=== PATIENT | male | born 1945 | race Caucasian/White ===

== ENCOUNTER → 2016-12-01 | Outpatient (CLI) | payer OTHER ==
[~2016-12-01] MED LIST: ATEN50TA8 PO; MULT-513 PO; OMEG10007 PO; OMEP40CA PO
--- NOTE | 2016-12-01 16:59 | DIAGNOSTIC IMAGING REPORT ---
LEFT KNEE 1 OR 2 VIEWS ROUTINE CLINICAL HISTORY: KNEE PAIN pain COMPARISON: None. DISCUSSION: Generalized degenerative change of all major joint compartments. Degenerative changes of the articular services throughout. No significant joint effusion. There is no evidence for soft tissue swelling. IMPRESSION: Generalized degenerative change of all major joint compartments. No acute process. Electronically signed by: Brandin Rodrigues M.D. 12/01/2016 4:57 PM Dictated Date/Time: 12/01/2016 4:57 PM
== END | disposition home or self-care (01) ==
LOC: C.RADBC 16:32
PROVIDERS: ATTEND Internal Medicine
DX: M25.562 Pain in left knee (principal)

== ENCOUNTER → 2017-07-04 | Outpatient (CLI) | payer OTHER ==
[2017-07-04 10:53] LABS: BASO % 0.6 %; BASO ABS # 0.04 K/uL (0-0.2); COMPLETE YES; EOS % 4.5 %; HEMATOCRIT 42.5 % (42-52); IG% 0.4 %; LYMPH % 26.1 %; LYMPH ABS # 1.78 K/uL (1.2-3.4); MEAN CORPUSCULAR HEMOGLOBIN 31.5 pg (25-34); MEAN CORPUSCULAR HGB CONC 33.9 g/dl (32-36); MEAN PLATELET VOLUME 9.3 fL (7.4-10.4); MONO % 8.9 %; NEUT % 59.5 %; PLATELET COUNT 251 K/uL (130-400); RED BLOOD COUNT 4.57 M/uL (4.7-6.1); WHITE BLOOD COUNT 6.83 K/uL (4.8-10.8)
[2017-07-04 11:19] LABS: ALT/SGPT 26 U/L (12-78); AST/SGOT 14 U/L (15-37); BLOOD UREA NITROGEN 19 mg/dl (7-18); BUN/CREATININE RATIO 15.7 (10-20); CALCIUM 8.7 mg/dl (8.5-10.1); CARBON DIOXIDE 27 mmol/L (21-32); CHLORIDE 108 mmol/L (98-107); GLUCOSE 101 mg/dl (70-99); POTASSIUM 3.9 mmol/L (3.5-5.1); SODIUM 142 mmol/L (136-145)
[2017-07-04 11:23] LABS: ALKALINE PHOSPHATASE 131 U/L (45-117); CHOLESTEROL 154 mg/dl (0-200); CHOLESTEROL/HDL RATIO 4.5; HDL CHOLESTEROL 34 mg/dl; LDL CHOLESTEROL CALCULATED 87 mg/dl; TRIGLYCERIDES 165 mg/dl (0-150); VERY LOW DENSITY LIPOPROT CALC 33 mg/dl
--- NOTE | 2017-07-12 09:38 | CODING QUERY MEDICAL NECESSITY ---
CQSUPPORTING DIAGNOSIS NEEDED A supporting diagnosis is required for the test/procedure performed on this patient in order for us to be reimbursed by the patient's insurance. Please provide a supporting diagnosis for the following test/procedure listed below next to the test name along with your signature. *If there is no additional diagnosis for this patient that would support the following test/procedure please document that below next to the test/procedure. Test(s)/Procedure(s) that require a supporting diagnosis: DOS 07/04/17 PROSTATE SPECIFIC TEST Provider Signature: Date: Thank you Bibi Doty [employer] Once completed, please kindly fax back to [phone] For questions please call [phone]
== END | disposition home or self-care (01) ==
LOC: C.LABBC 08:22
PROVIDERS: ATTEND Internal Medicine
DX: I10 Essential (primary) hypertension (principal)

== ENCOUNTER → 2017-08-08 | Outpatient (CLI) | payer OTHER | END | disposition home or self-care (01) | LOC: C.LABBC 13:00 | PROVIDERS: ATTEND Internal Medicine | DX: I10 Essential (primary) hypertension (principal); E78.1 Pure hyperglyceridemia ==

== ENCOUNTER → 2017-12-21 | Outpatient (CLI) | payer OTHER ==
[2017-12-21 10:58] LABS: BASO % 0.5 %; BASO ABS # 0.03 K/uL (0-0.2); EOS % 3.9 %; EOS ABS # 0.25 K/uL (0-0.5); HEMATOCRIT 41.6 % (42-52); IG# 0.02 K/uL (0.00-0.02); LYMPH % 24.1 %; LYMPH ABS # 1.56 K/uL (1.2-3.4); MEAN CELL VOLUME 93.3 fL (80-100); MEAN CORPUSCULAR HEMOGLOBIN 31.4 pg (25-34); MEAN CORPUSCULAR HGB CONC 33.7 g/dl (32-36); MEAN PLATELET VOLUME 9.2 fL (7.4-10.4); MONO % 7.6 %; MONO ABS # 0.49 K/uL (0.11-0.59); NEUT % 63.6 %; NEUT ABS # 4.13 K/uL (1.4-6.5); PLATELET COUNT 215 K/uL (130-400); RED CELL DISTRIBUTION WIDTH CV 14.1 % (11.5-14.5); RED CELL DISTRIBUTION WIDTH SD 48.2 fL (36.4-46.3); WHITE BLOOD COUNT 6.48 K/uL (4.8-10.8)
[2017-12-21 16:06] LABS: ALBUMIN 3.9 gm/dl (3.4-5.0); ALT/SGPT 31 U/L (12-78); AST/SGOT 18 U/L (15-37); BLOOD UREA NITROGEN 19 mg/dl (7-18); CALCIUM 8.8 mg/dl (8.5-10.1); CARBON DIOXIDE 27 mmol/L (21-32); CHOLESTEROL 166 mg/dl (0-200); GLUCOSE 96 mg/dl (70-99); POTASSIUM 4.2 mmol/L (3.5-5.1); SODIUM 141 mmol/L (136-145)
[2017-12-21 16:17] LABS: ALKALINE PHOSPHATASE 113 U/L (45-117); LDL CHOLESTEROL CALCULATED 95 mg/dl; TOTAL PROTEIN 7.4 gm/dl (6.4-8.2)
== END | disposition home or self-care (01) ==
LOC: C.LABBC 09:07
PROVIDERS: ATTEND Internal Medicine
DX: Z00.00 Encounter for general adult medical examination without abnormal findings (principal); M19.90 Unspecified osteoarthritis, unspecified site

== ENCOUNTER 2020-01-01 18:12 | Observation (INO) ==
[2020-01-01] MEDS ORDERED: PIPERACILLIN/TAZOBACTAM 4.5 GM/120 ML BAG IV ONE (18:21)
[2020-01-01] MEDS ORDERED: PIPERACILL/TAZOBAC CONSULT ACTIVE PRN (18:21)
[2020-01-01] MEDS ORDERED: SODIUM CHLORIDE 0.9% 1000ML 1,000 ML IV ONE (18:21)
--- NOTE | 2020-01-01 18:35 | Emergency Department Note ---
History of Present Illness General Chief complaint: Abnormal Labs/Diagnostic Testing Stated complaint: ABN CT, TENDER ABDOMEN Time Seen by Provider: 01/01/20 18:16 Source: patient Mode of arrival: ambulatory Limitations: no limitations History of Present Illness Provider complaint: Abdominal pain Location: abdomen Radiation: periumbilical Severity: moderate Pain Consistency: + constant Maximum Pain Intensity: 5 Quality: + dull Relieved By: + none Exacerbated By: + movement Associated symptoms: + nausea/vomiting Treatments prior to arrival: none This is a 74-year-old male who presents to the ED with a chief complaint of abdominal pain. He states that his symptoms started on Monday morning with a fairly severe periumbilical pain that eventually migrated into the right upper quadrant over the past 2 days. He reported some nausea and vomiting the first day. Today he just has exquisite tenderness in the right upper quadrant. He saw his PCP who initiated an outpatient work-up including CT scan and blood work. The patient states that pushing on the area makes his pain worse. He denies having any vomiting or diarrhea today. No chest pains or shortness of breath. His pain is moderate to severe with palpation otherwise it is mild. He has not had an appetite. Home Medications Home Medications Medication Instructions Recorded Confirmed Type hydrocortisone 2.5 % topical cream 1 appln ME DAILY PRN #1 gm 07/11/19 01/01/20 History with perineal applicator multivitamin 1 tab PO DAILY 07/11/19 01/01/20 History omega-3 acid ethyl esters 1 gram 1 cap PO BID cap 07/11/19 01/01/20 History capsule omeprazole 40 mg capsule,delayed 40 mg PO DAILY #90 cap 07/11/19 01/01/20 History release atenolol 50 mg PO QPM 01/01/20 01/01/20 History Allergies Allergy/AdvReac Type Severity Reaction Status Date / Time pseudoephedrine Allergy Unknown RASH Verified 01/01/20 19:16 triprolidine Allergy Unknown RASH Verified 01/01/20 19:16 Past Med/Surg History Medical History 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 (Acute) Essential hypertriglyceridemia (Acute) Gastroesophageal reflux disease (Acute) HTN (hypertension) (Acute) Nephrolithiasis Schatzki's ring of distal esophagus (Acute) Tubular adenoma of colon (Acute) Surgical History Hx of appendectomy Hx of tonsillectomy Family History Other Hypertension Prostate cancer Skin cancer Social History Preferred Language: Telugu Communication Ability: Effective Visual Impairment: No Limitations Hearing Ability: Use of Hearing Aid Roster Clerk Required: No marital status: Current Living Situation: Spouse Current Living Situation Comment: 1 cat current occupational status: retired Feels Safe at Home: Yes Smoking Status: Never smoker Hx Alcohol Use: No Hx Substance Use: No Childhood Exposure to Second-Hand Smoke: Yes Dental Care, Regularly: Yes Physical Activity Frequency: Daily Seatbelt Use: always Sunscreen Use: No Review of Systems A total of 10 systems reviewed and were otherwise negative Physical Exam Vital Signs Vital Signs - 24 hr 01/01/20 18:13 01/01/20 18:37 01/01/20 19:16 Temperature 37.9 C H Temperature Source Oral Pulse Rate 88 87 Pulse Rate [Right Finger] 82 Respiratory Rate 18 24 20 Respiratory Depth Normal Blood Pressure 116/73 122/78 Blood Pressure [Left Arm] 137/73 Blood Pressure Mean 87 Blood Pressure Mean [Left Arm] 94 Blood Pressure Position Sitting Pulse Oximetry 95 95 99 Oxygen Delivery Method Room Air Room Air Sepsis Recent Fever Within 48 Hours No Sepsis Action Taken by Nursing No Action Required CONSTITUTIONAL/VITAL SIGNS: Reviewed / noted above. GENERAL: Non-toxic in appearance. INTEGUMENTARY: Warm, dry, and Happy. HEAD: Normocephalic. EYES: without scleral icterus or trauma. ENT/OROPHARYNX: clear and moist. LYMPHADENOPATHY/NECK: Is supple without lymphadenopathy or meningismus. RESPIRATORY: Lungs clear and equal. CARDIOVASCULAR: Regular rate and rhythm. GI/ABDOMEN: Soft and tender in the right upper quadrant. No organomegaly or pulsatile mass. No rebound or guarding. Normal bowel sounds. EXTREMITIES: Warm and well perfused. BACK: No CVA tenderness. NEUROLOGICAL: Intact without focal deficits. PSYCHIATRIC: normal affect. MUSCULOSKELETAL: Normally developed with good muscle tone. TRIAGE NURSING DOCUMENTATION REVIEWED. Course Course 1826 IV Zosyn 4.5 g ordered as well as normal saline 1 L IV. [address] French about the patient. He will see the patient in the ED. Administered Medications Discontinued Medications Piperacillin Sod/Tazobactam Sod (Zosyn) 4.5 gm in 120 mls @ 240 mls/hr IV NOW ONE Stop: 01/01/20 18:50 Last Infusion: 01/01/20 19:07 Dose: 0 mls/hr Documented by: [id number] Admin: 01/01/20 18:38 Dose: 240 mls/hr Documented by: [id number] Sodium Chloride (Nss 1000ml) 1,000 mls @ 999 mls/hr IV .Q1H1M ONE Stop: 01/01/20 19:21 Last Admin: 01/01/20 18:38 Dose: 999 mls/hr Documented by: [id number] Medical Decision Making Differential Diagnosis Differential considered: pancreatitis, hepatitis, acute cholecystitis, AAA, UTI , pyelonephritis, kidney stones, appendicitis, diverticulitis, shingles, bowel obstruction, mesenteric ischemia, intussusception,hernia, testicular torsion, ovarian torsion, ruptured ovarian cyst,ectopic , . Medical Records Attestation: I reviewed the patient's medical records. Home Medications Current Medication List: was personally reviewed by me Laboratory Data Attestation: I reviewed the patient's lab results. The patient's white blood cell count is 13. Hemoglobin is 13. Complete metabolic panel was unremarkable. The BUN is 21. Bilirubin is 1.3. Lipase was normal. Imaging Data Radiologist's Impression: CT scan of the abdomen and pelvis IMPRESSION: 1. Distended and thick-walled gallbladder with surrounding inflammatory change. There is gas either within the lumen or wall the gallbladder. Therefore, this is consistent with a gangrenous/emphysematous acute cholecystitis. 2. Mild thickening of the adjacent duodenum and hepatic flexure of the colon is likely reactive to the acute cholecystitis. 3. Hepatic steatosis. 4. Left-sided nephrolithiasis. No hydronephrosis. 5. Additional findings as described above. 6. These findings were discussed with Dr. Rodriguez at 4:23 PM on 01/01/2020. XR chest 1V portable HISTORY: 74 years-old Male surgery--gangrenous gb preoperative exam. Acute right upper quadrant abdominal pain COMPARISON: CT abdomen and pelvis of same day, chest radiograph 12/04/2019 TECHNIQUE: Portable AP view of the chest FINDINGS: Cardiac silhouette is mildly enlarged. Right hemidiaphragmatic elevation with right lung base densities suggestive of probable atelectasis. No pneumothorax, large pleural effusion and or overt pulmonary edema. Degenerative changes of the shoulders and spine. IMPRESSION: 1. Cardiomegaly without acute process. 2. Right hemidiaphragm elevation with right lung base opacities suggestive of atelectasis. ECG Data Attestation: I personally reviewed and interpreted this ECG as follows: Indication: + abdominal pain Rate (beats per minute): 80 Rhythm: + normal sinus ECG Intervals/blocks: no Normal QT-c ECG ST segments: no ST elevation ECG Findings: no PVCs Blood Pressure Blood Pressure Findings: Normal blood pressure MDM Narrative The patient presents with an outpatient work-up including a CT scan and blood work that suggested a gangrenous gallbladder. His symptoms started a couple of days ago with some periumbilical pain that is now localized in the right upper quadrant. His temperature today is 37.9. He is not tachycardic and his blood pressure is normal. The patient's laboratory studies have been reviewed here. His CAT scan has been reviewed as well. EKG is here shows a normal sinus rhythm. Chest x-ray did not show acute process. I spoke with Dr. French about the patient. The patient was started on IV Zosyn as well as given a bolus of normal saline IV. He will need admitted for surgery. Impression & Plan Acute gangrenous cholecystitis Discharge Plan Visit Data Chief Complaint: Abnormal Labs/Diagnostic Testing Stated Complaint: ABN CT, TENDER ABDOMEN ED Provider: Lucian Rabago Discharge Problem: Acute gangrenous cholecystitis Patient Disposition: Being Evaluated by Surgeon Discharge Instructions Interventions: ED Discharge Assessment Last Done: 01/01/20 19:16 Forms Stand Alone Forms: My [facility] [place] [employer] Prescriptions Prescriptions: No Action omega-3 acid ethyl esters 1 gram capsule 1 cap PO BID RF: 0 multivitamin [Daily Multi-Vitamin] tablet 1 tab PO DAILY RF: 0 omeprazole 40 mg capsule,delayed release(DR/EC) 40 mg PO DAILY Qty: 90 RF: 0 hydrocortisone 2.5 % cream with perineal applicator 1 appln ME DAILY PRN (Reason: Itching) Qty: 1 RF: 0 atenolol 50 mg tablet 50 mg PO QPM RF: 0 Referrals Referrals: Darrin Rodriguez MD [Primary Care Provider] -
--- NOTE | 2020-01-01 19:00 | XRay Report ---
XR chest 1V portable HISTORY: 74 years-old Male surgery--gangrenous gb preoperative exam. Acute right upper quadrant abdo nena pain COMPARISON: CT abdomen and pelvis of same day, chest radiograph 12/04/2019 TECHNIQUE: Portable AP view of the chest FINDINGS: Cardiac silhouette is mildly enlarged. Right hemidiaphragmatic elevation with right lung base densiti es suggestive of probable atelectasis. No pneumothorax, large pleural effusion and or overt pulmonary edema. Degenerative changes of the shoulders and spine. IMPRESSION: 1. Cardiomegaly without acute process. 2. Right hemidiaphragm elevation with right lung base opacities suggestive of atelectasis. ACT 112: Negative or not required by law. The above report was generated using voice recognition software. It may contain grammatical, syntax o r spelling errors. Electronically signed by: Cy Huerta M.D. 01/01/2020 6:58 PM
[2020-01-01] MEDS ORDERED: BUPIVACAINE 0.5 % 5 MG/1 ML MPF 30ML VIAL ONE (19:07)
[2020-01-01] MEDS ORDERED: CEFAZOLIN 250 MG/ML 1 GM VIAL ONE (19:07)
[2020-01-01] MEDS ORDERED: HEPARIN (PORCINE) 1000 UNIT/ML 10 ML (CATH LAB USE ONLY) ONE (19:07)
[2020-01-01] MEDS ORDERED: ATROPINE SULFATE 0.1 MG/ML 10ML SYR IV PRN (19:28)
[2020-01-01] MEDS ORDERED: ONDANSETRON INJ 2 MG/ML 2 ML VIAL IV PRN ×2 (19:28→23:18)
[2020-01-01] MEDS ORDERED: fentaNYL citrate 100 MCG/2 ML VIAL IV PRN (19:28)
[2020-01-01] MEDS ORDERED: ePHEDrine sulfate 50 MG/ML AMP IV PRN (19:28)
--- NOTE | 2020-01-01 19:28 | Anesthesiology Consultation ---
Date of Service January 01, 2020 Assessment & Plan Chart Review Chart Review: Acceptable Risk for Surgery and Patient NOT seen in Pre Admission Testing Consults Requested none ASA [id number] Proposed Anesthesia Anesthesia Type: General Risk / Benefits Reviewed With: PT / POA / Parent / Guardian, Accepts Plan and Informed Consent Obtained History Surgery Operation Date: 01/01/20 19:00 Proposed Procedures p Laparoscopic Cholecystectomy - Brandin French MD Height/Weight Height: 5 ft 9 in Weight: 86.1 kg Allergies Allergy/AdvReac Type Severity Reaction Status Date / Time pseudoephedrine Allergy Unknown RASH Verified 01/01/20 19:16 triprolidine Allergy Unknown RASH Verified 01/01/20 19:16 Medications Home Medications Medication Instructions Recorded Confirmed Last Taken hydrocortisone 2.5 % topical cream 1 appln ME DAILY PRN #1 gm 07/11/19 01/01/20 Unknown with perineal applicator multivitamin 1 tab PO DAILY 07/11/19 01/01/20 01/01/20 omega-3 acid ethyl esters 1 gram 1 cap PO BID cap 07/11/19 01/01/20 01/01/20 capsule omeprazole 40 mg capsule,delayed 40 mg PO DAILY #90 cap 07/11/19 01/01/20 01/01/20 release atenolol 50 mg PO QPM 01/01/20 01/01/20 12/31/19 NPO Date Last Intake of Fluids: 01/01/20 Time Last Intake of Fluids: 12:00 Past Medical History Medical History 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 (Acute) Essential hypertriglyceridemia (Acute) Gastroesophageal reflux disease (Acute) HTN (hypertension) (Acute) Nephrolithiasis Schatzki's ring of distal esophagus (Acute) Tubular adenoma of colon (Acute) Exercise / Class Metabolic Activity II 4-5 Yardwork/Stairs/Walk up hill Past Family History Family History Other Hypertension Prostate cancer Skin cancer Past Surgical History Surgical History Hx of appendectomy Hx of tonsillectomy Past Anesthesia History No Hx of Anesthesia Complications and No Family Hx of Anesthesia Complications History of PONV No Hx of PONV and No Hx of Motion Sickness Social History Smoking Status: Never smoker Hx Alcohol Use: No Hx Substance Use: No Physical Exam Vital Signs Last Vital Signs Temp 37.9 C H 01/01/20 18:13 Pulse 87 01/01/20 19:16 Resp 20 01/01/20 19:16 BP 122/78 01/01/20 19:16 Pulse Ox 99 01/01/20 19:16 ENMT Mouth: no dentition abnormality Thyromental Distance: > or= 3.5 Finger Breadths Mallampati Class: II Neck normal visual inspection Respiratory normal respiratory effort Auscultation: lungs clear to auscultation bilaterally Cardiovascular Rate/Rhythm: regular rate and regular rhythm Psychiatric Orientation: alert
--- NOTE | 2020-01-01 19:30 | History & Physical Report ---
Date of Service January 01, 2020 Assessment & Plan (1) Acute gangrenous cholecystitis: This patient has acute cholecystitis with evidence of possible gangrenous cholecystitis. I recommended a laparoscopic cholecystectomy but explained that there is an increased chance that it will require an open procedure and he understands that. I explained to him the procedures. I explained the possible complications and answered his questions and he has signed a consent form. History of Present Illness Chief Complaint: Abdominal pain Primary Care Provider: Darrin Rodriguez MD This is a 74-year-old male who was sent to the emergency room after a CT scan demonstrated gangrenous gallbladder. The patient states that he began to have pain 2 days ago. It was on the right side from the level of the umbilicus up to the subcostal region. The pain then became very sharp. It has persisted. He has never had pain like this before. Motion exacerbates the discomfort. He has had no fever or chills. He denies nausea and vomiting. His bowels have been moving without melena or hematochezia. He has no diarrhea or constipation. He has never had jaundice, hepatitis or pancreatitis. Allergies Allergy/AdvReac Type Severity Reaction Status Date / Time pseudoephedrine Allergy Unknown RASH Verified 01/01/20 19:16 triprolidine Allergy Unknown RASH Verified 01/01/20 19:16 Home Medications Home Medications Medication Instructions Recorded Confirmed Type hydrocortisone 2.5 % topical cream 1 appln ID DAILY PRN #1 gm 07/11/19 01/01/20 History with perineal applicator multivitamin 1 tab PO DAILY 07/11/19 01/01/20 History omega-3 acid ethyl esters 1 gram 1 cap PO BID cap 07/11/19 01/01/20 History capsule omeprazole 40 mg capsule,delayed 40 mg PO DAILY #90 cap 07/11/19 01/01/20 History release atenolol 50 mg PO QPM 01/01/20 01/01/20 History Past Med/Surg History Medical History 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 (Acute) Essential hypertriglyceridemia (Acute) Gastroesophageal reflux disease (Acute) HTN (hypertension) (Acute) Nephrolithiasis Schatzki's ring of distal esophagus (Acute) Tubular adenoma of colon (Acute) Surgical History Hx of appendectomy Hx of tonsillectomy Family History Other Hypertension Prostate cancer Skin cancer Social History Preferred Language: Estonian Communication Ability: Effective Visual Impairment: No Limitations Hearing Ability: Use of Hearing Aid Bee Tender Required: No marital status: Current Living Situation: Spouse Current Living Situation Comment: 1 cat current occupational status: retired Feels Safe at Home: Yes Smoking Status: Never smoker Hx Alcohol Use: No Hx Substance Use: No Childhood Exposure to Second-Hand Smoke: Yes Dental Care, Regularly: Yes Physical Activity Frequency: Daily Seatbelt Use: always Sunscreen Use: No Review of Systems Review of Systems: All systems reviewed & are unremarkable except as noted in HPI & below Physical Exam Constitutional: well developed; no acute distress Neck: trachea midline Respiratory: normal respiratory effort, lungs clear to auscultation Cardiovascular: Rate/Rhythm: regular rate and regular rhythm Gastrointestinal (Abdomen): Inspection/Auscultation: normal bowel sounds; abdomen not distended Percussion/Palpation: + abdomen tender (Right subcostal region) and abdomen soft; no guarding Skin: no rashes, warm and dry Lymphatic: no cervical lymphadenopathy Results & Data Vital Signs (Past 12 Hours) Vital Signs Temp Pulse Pulse Resp BP BP Pulse Ox 01/01/20 19:16 87 20 122/78 99 01/01/20 18:37 82 24 137/73 95 01/01/20 18:13 37.9 C H 88 18 116/73 95 Laboratory Results WBC 13.04 H&H 13.3 and 40.4 platelets 203,000 sodium 136 potassium 3.9 chloride 105 CO2 26 BUN 21 creatinine 1.3 glucose 123 total bilirubin 1.3 AST 17 ALT 22 alkaline phosphatase 122 lipase 72 Diagnostic Findings ABDOMEN AND PELVIS CT WITHOUT CONTRAST CT DOSE: 902.74 mGycm HISTORY: R10.31 Right lower quadrant pain TECHNIQUE: Multiaxial CT images of the abdomen and pelvis were performed without contrast. A dose lowering technique was utilized adhering to the principles of ALARA. COMPARISON STUDY: None. FINDINGS: Punctate calcified granuloma seen within the lung bases. Bibasilar linear densities consistent with subsegmental atelectasis. No suspicious lytic are blastic osseous lesions. Hepatic steatosis. The unenhanced spleen, adrenal glands, and pancreas are unremarkable. Left-sided nephrolithiasis. No ureteral stones. No hydronephrosis. The bladder is unremarkable. A 2 cm hypodense lesion within the upper pole the right kidney. This is technically too small to characterize but favors a cyst. No retroperitoneal lymphadenopathy. Small fat-containing umbilical hernia. Distended and thick-walled gallbladder with surrounding inflammatory change. There is gas either within the lumen or wall the gallbladder. Therefore, this is consistent with a gangrenous/emphysematous acute cholecystitis. There are few punctate gallstones within the gallbladder fundus. Mild thickening of the adjacent duodenum and hepatic flexure of the colon is likely reactive to the acute cholecystitis. Small fat-containing left inguinal hernia. Colonic diverticulosis. No evidence for acute diverticulitis. No evidence for bowel obstruction. Distal ileal diverticula are also noted. The appendix is not identified and reportedly surgically absent. IMPRESSION: 1. Distended and thick-walled gallbladder with surrounding inflammatory change. There is gas either within the lumen or wall the gallbladder. Therefore, this is consistent with a gangrenous/emphysematous acute cholecystitis. 2. Mild thickening of the adjacent duodenum and hepatic flexure of the colon is likely reactive to the acute cholecystitis. 3. Hepatic steatosis. 4. Left-sided nephrolithiasis. No hydronephrosis. 5. Additional findings as described above. 6. These findings were discussed with Dr. Rodriguez at 4:23 PM on 01/01/2020.
[2020-01-01] MEDS ORDERED: fentaNYL citrate 100 MCG/2 ML VIAL ONE (19:50)
[2020-01-01] MEDS ORDERED: DEXAMETHASONE SOD INJ 4 MG/ML VIAL ONE (20:28)
[2020-01-01] MEDS ORDERED: ONDANSETRON INJ 2 MG/ML 2 ML VIAL ONE (20:28)
[2020-01-01] MEDS ORDERED: ROCURONIUM BROMIDE 10 MG/ML 5 ML VIAL ONE (20:28)
[2020-01-01] MEDS ORDERED: GLYCOPYRROLATE 0.2 MG/ML VIAL ONE (20:28)
[2020-01-01] MEDS ORDERED: NEOSTIGMINE METHYLSULFATE 5 MG/5 ML SYR ONE (20:28)
[2020-01-01] MEDS ORDERED: SUCCINYLCHOLINE CHLORIDE 20 MG/ML 10 ML VIAL ONE (20:28)
[2020-01-01] MEDS ORDERED: LIDOCAINE HCL 2% 2 ML VIAL/AMP(20MG/ML) INFIL ONE (20:28)
[2020-01-01] MEDS ORDERED: PROPOFOL IV EMULSION 10 MG/ML 20 ML VIAL IV ONE (20:28)
[2020-01-01] MEDS ORDERED: MoRPHine SULFATE PF 1 MG/ML 10 ML AMP/VIAL ONE (20:29)
[2020-01-01] MEDS ORDERED: FLOSEAL HEMOSTATIC MATRIX 10ML TOP ONE (21:40)
--- NOTE | 2020-01-01 22:07 | Post Operative Brief Note ---
Immediate Post Op Note v1 Date of Surgery January 01, 2020 Pre & Post Diagnosis Operation Date: 01/01/20 19:00 Pre-Op Diagnosis: Acute Cholecystitis Post-Op Diagnosis: Acute Gangrenous Cholecystitis I identified the patient and participated in the time-out.: Yes Procedure Operation Date: 01/01/20 19:00 Actual Procedures p Laparoscopic Cholecystectomy(Not Applicable) - Brandin French MD Surgeon Brandin French MD Puff Ironer None Estimated Blood Loss 50 Findings Consistent with Post-Op Diagnosis Drains Yaya-Mendez Drain (10fr flat drain right lateral abdomen) Anesthesia Type General Complications none
--- NOTE | 2020-01-01 22:36 | Anesthesiology Progress Note ---
Date of Service January 01, 2020 Anesthesia Post Procedure Vital Signs Vital Signs: Temp Pulse Pulse Pulse Resp BP BP 01/01/20 22:35 78 18 107/56 L 01/01/20 22:25 78 18 104/58 L 01/01/20 22:17 36.6 C 81 18 134/63 01/01/20 19:16 87 20 122/78 01/01/20 18:37 82 24 137/73 01/01/20 18:13 37.9 C H 88 18 116/73 Pulse Ox 01/01/20 22:35 93 01/01/20 22:25 93 01/01/20 22:17 93 01/01/20 19:16 99 01/01/20 18:37 95 01/01/20 18:13 95 Transfer of Care Handoff Completed per policy Notes Mental Status: alert / awake / arousable Patient Amnestic to Procedure: Yes Nausea / Vomiting: adequately controlled Pain: adequately controlled Airway Patency, RR, SpO2: stable & adequate BP & HR: stable & adequate Hydration State: stable & adequate Anesthetic Complications: no major complications apparent
[2020-01-01] MEDS ORDERED: OXYCODONE/ACETAMINOPHEN 5mg/325mg TAB PO PRN (23:18)
[2020-01-01] MEDS ORDERED: MoRPHine SULFATE 4 MG/ML 1 ML CARP\\VIAL IV PRN (23:18)
[2020-01-01] MEDS: SODIUM CHLORIDE 0.9% 1000ML 1,000 ML IV SCH (23:41)
--- NOTE | 2020-01-02 01:25 | Operative Report (OR) ---
DATE OF OPERATION: 01/01/2020 PREOPERATIVE DIAGNOSIS: Acute cholecystitis. POSTOPERATIVE DIAGNOSIS: Acute gangrenous cholecystitis. SURGEON: Brandin French MD FINDINGS: The gallbladder was dilated and the wall was thick. There were multiple patches of gangrenous gallbladder wall. There was purulent bile within the lumen. Cystic duct was not dilated. The liver was of normal size and contour. The visible bowel appeared normal. There were thickened adhesions of the omentum to the fundus of the gallbladder and also to the anterior surface of the liver. TECHNIQUE: The patient was given a general anesthetic and the area was prepped and draped in the usual sterile fashion. The site for the subumbilical incision was made and the skin and subcutaneous tissue were anesthetized with 0.5% Marcaine. Skin incision was made and carried down through the subcutaneous tissue to the fascia which was grasped with 2 Miguelangel clamps and incised between. The peritoneum was identified, incised, and the introducer was placed bluntly. The abdomen was then insufflated to a pressure of 15 mmHg with carbon dioxide. The sites for the upper midline, midclavicular, and anterior axillary introducers were chosen and the skin and subcutaneous tissue was anesthetized with 0.5% Marcaine. Each of those introducers were placed through a small skin incision under direct vision. The patient was positioned. I initially could not visualize the gallbladder due to the omental adhesions. I did take those down using cautery and blunt dissection where appropriate. That then allowed me to see the gallbladder wall. Once I had the adhesions off the fundus of the gallbladder, the remainder of it was free of adhesion. I then attempted to grasp the gallbladder, but was unable to. The drainage needle was passed under direct vision into the gallbladder and it was drained. The gallbladder could then be grasped and elevated. I then grasped the infundibulum area and elevated that. The peritoneum was quite thickened. I was able to open that and dissect off the infundibulum down to where I was sure I was underneath the infundibulum at the neck of the gallbladder and peel that tissue away, first laterally and then medially which then allowed me to identify the cystic duct. The infundibulum and lower portion of the body of the gallbladder were dissected away from the liver laterally. I then was able to place more inferior traction and open the triangle of Calot and dissect the infundibulum and lower body away medially which allowed me then to see the medial wall of the cystic duct and establish a plane on the medial side where there were some lymphatics that were divided using cautery, which allowed me then to establish a plane behind it. Further dissection was carried out with placing lateral traction on the gallbladder and the cystic duct. That allowed me then to identify the cystic artery. That allowed me to have an adequate window and I placed 2 clips on the proximal cystic duct, one near the junction with the gallbladder and divided the cystic duct. Further dissection of the cystic artery was then performed. It was isolated, clamped, and divided. Behind that was a large lymphatic which was clamped proximally, distally and divided. That then allowed me to peel the gallbladder off the liver bed. There was not a good plane of dissection and it required in some areas very meticulous millimeter by millimeter dissection. I did not want to leave any of the back wall of the gallbladder and I was able to remove the entire gallbladder. The dissection was carried from inferior to superior and then from lateral to medial until it was completely removed. It was placed into an Endobag and brought out through the upper midline incision where I had to open the incision further in order to extract it but that was accomplished. That introducer was replaced and the liver edge was elevated. There was clot within the gallbladder bed of the liver that was removed. There was clot in the subhepatic space that was removed. There were multiple areas of oozing that required cautery. This required meticulous hemostatic attention using cautery. I would irrigate, cauterize, and then irrigate again until I was sure that all of the areas had been controlled. The subdiaphragmatic and subhepatic spaces were then irrigated. The irrigation was removed. Any clot that was encountered was removed. The gallbladder bed of the liver was again inspected and then was bleeding. Due to the oozing, I placed FloSeal in the gallbladder bed of the liver. I then placed a 10 mm Yaya-Mendez in the subhepatic space and brought it out through the anterior axillary introducer site and secured that with a 3-0 nylon. Gas was allowed to escape and the introducers were removed. The fascia of the umbilical and upper midline introducer sites was closed with interrupted 0 Vicryl and the skin of all the incisions was closed with 4-0 Monocryl in either an interrupted or running subcuticular fashion. The skin was cleansed, dried, benzoin placed, Steri-Strips applied. Estimated blood loss was 50 mL. Sponge, needle and instrument counts were correct prior to closure. The patient tolerated the surgical procedure without complication and was transferred to recovery. I attest to the content of the Intraoperative Record and any orders documented therein. Any exception s are noted below.
[2020-01-02 05:51] LABS: Basophils # (auto) 0.01 K/uL (0-0.2); Basophils % (auto) 0.1 %; Hematocrit (blood only) 33.6 % (42-52); Immature Granulocytes # (auto) 0.02 K/uL (0.00-0.02); Immature Granulocytes % (auto) 0.2 %; Lymphocytes # (auto) 0.53 K/uL (1.2-3.4); Mean Corpuscular Hemoglobin 30.7 pg (25-34); Mean Corpuscular Hgb Conc 32.7 g/dL (32-36); Mean Corpuscular Volume 93.9 fL (80-100); Mean Platelet Volume 9.5 fL (7.4-10.4); Monocytes # (auto) 0.61 K/uL (0.11-0.59); Monocytes % (auto) 6.9 %; Neutrophils # (auto) 7.64 K/uL (1.4-6.5); Neutrophils % (auto) 86.8 %; Platelet Count 145 K/uL (130-400); RDW Coefficient of Variation 14.6 % (11.5-14.5); RDW Standard Deviation 50.3 fL (36.4-46.3); Red Blood Count 3.58 M/uL (4.7-6.1); White Blood Count 8.81 K/uL (4.8-10.8)
[2020-01-02] MEDS ORDERED: ACETAMINOPHEN 325 MG TAB PO PRN (07:07)
--- NOTE | 2020-01-02 07:28 | Anesthesiology Progress Note ---
Date of Service January 02, 2020 Anesthesia Post Procedure Vital Signs Vital Signs: Temp Pulse Pulse Pulse Resp BP BP 01/02/20 06:01 01/02/20 05:50 01/02/20 03:09 36.5 C 71 16 109/63 01/02/20 02:07 67 18 110/69 01/02/20 01:05 69 16 114/69 01/02/20 00:05 74 18 114/65 01/01/20 23:35 36.8 C 87 18 121/72 01/01/20 23:05 36.9 C 90 18 116/63 01/01/20 22:45 82 18 113/60 01/01/20 22:35 78 18 107/56 L 01/01/20 22:25 78 18 104/58 L 01/01/20 22:17 36.6 C 81 18 134/63 01/01/20 19:16 87 20 122/78 01/01/20 18:37 82 24 137/73 01/01/20 18:13 37.9 C H 88 18 116/73 Pulse Ox 01/02/20 06:01 94 01/02/20 05:50 94 01/02/20 03:09 96 01/02/20 02:07 97 01/02/20 01:05 97 01/02/20 00:05 95 01/01/20 23:35 94 01/01/20 23:05 92 01/01/20 22:45 93 01/01/20 22:35 93 01/01/20 22:25 93 01/01/20 22:17 93 01/01/20 19:16 99 01/01/20 18:37 95 01/01/20 18:13 95 Notes Mental Status: alert / awake / arousable and participated in evaluation Patient Amnestic to Procedure: Yes Nausea / Vomiting: adequately controlled Pain: adequately controlled Airway Patency, RR, SpO2: stable & adequate BP & HR: stable & adequate Hydration State: stable & adequate Anesthetic Complications: no major complications apparent and Pt Satisfied with anesthetic care
[2020-01-02] MEDS: PANTOprazole 40 MG TAB PO SCH (09:05)
--- NOTE | 2020-01-02 09:28 | Family Medicine Consultation ---
Date of Consultation January 02, 2020 Assessment & Plan (1) Acute gangrenous cholecystitis: Mr. Allen is a 74 gentleman on POD 1 after laparoscopic cholecystitis for acute gangrenous cholecystitis. Surgery consulted hospitalist team for blood pressure management in post-operative setting. (2) HTN (hypertension): - BP currently 116/76 - systolic has ranged from 104 to 134 - diastolic has ranged from 56 to 78 - pulse 66 to 90 - continue home dose Atenolol 60mg, qAM (3) Gastroesophageal reflux disease: - continue home protonix Dispo: Med/Surg DVT prophylaxis deferred to surgical team Diet: Regular Code: Conditional - Okay with Resuscitation, DNI Hospitalist team will sign off on care at this point. Please feel free to re- consult us if further questions arise Supervising Physician Co-Signing Physician Notes I personally examined the patient and verified all neves points of history and exam, discussed case, and agree with decision making with Dr Hui. feeling good overall. no new complaints. notes BP easy to control at home. vitals noted nad heent nc at mmm breathing unlabored no pallor or icterus HTN - well controlled no sx. continue home meds will be available if needed, but will sign off for now. thank you. History of Present Illness Reason for Consultation: Anti-hypertensive Management Attending Physician: Brandin French MD History of Present Illness Mr. Allen is a 74 yo gentleman who is POD 1 after laparoscopic cholecystectomy for acute gangrenous cholecystitis. Hospitalist team consulted for anti- hypertensive management. Mr. Allen is on Atenolol 50mg qAM at home for his blood pressure. He reports good control with this home medication. He reports feeling well, no new compliants. Allergies Allergy/AdvReac Type Severity Reaction Status Date / Time pseudoephedrine Allergy Unknown RASH Verified 01/01/20 19:16 triprolidine Allergy Unknown RASH Verified 01/01/20 19:16 Home Medications Home Medications Medication Instructions Recorded Confirmed Type hydrocortisone 2.5 % topical cream 1 appln DE DAILY PRN #1 gm 07/11/19 01/01/20 History with perineal applicator multivitamin 1 tab PO DAILY 07/11/19 01/01/20 History omega-3 acid ethyl esters 1 gram 1 cap PO BID cap 07/11/19 01/01/20 History capsule omeprazole 40 mg capsule,delayed 40 mg PO DAILY #90 cap 07/11/19 01/01/20 History release atenolol 50 mg PO QPM 01/01/20 01/01/20 History Patient History Medical History 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 (Acute) Essential hypertriglyceridemia (Acute) Gastroesophageal reflux disease (Acute) HTN (hypertension) (Acute) Nephrolithiasis Schatzki's ring of distal esophagus (Acute) Tubular adenoma of colon (Acute) Surgical History Hx of appendectomy Hx of tonsillectomy Family History Other Hypertension Prostate cancer Skin cancer Social History Preferred Language: Turkish Communication Ability: Effective Visual Impairment: No Limitations Hearing Ability: Use of Hearing Aid Tool Maintenance Technician Required: No Beliefs That Will Affect Care: None marital status: Current Living Situation: Spouse Current Living Situation Comment: 1 cat current occupational status: retired Feels Safe at Home: Yes Smoking Status: Never smoker Do You Dip or Chew Tobacco: No ; Hx Alcohol Use: No Hx Substance Use: No Childhood Exposure to Second-Hand Smoke: Yes Dental Care, Regularly: Yes Physical Activity Frequency: Daily Seatbelt Use: always Sunscreen Use: No Review of Systems Review of Systems: All systems reviewed & are unremarkable except as noted in HPI & below Physical Exam Constitutional: WD/WN, vitals as above Eyes: + anicteric sclerae Neck: normal visual inspection and trachea midline Respiratory: normal respiratory effort Skin: no rashes, warm and dry Psychiatric: A+Ox3, euthymic affect Results & Data Vital Signs (Past 12 Hours) Vital Signs Temp Pulse Pulse Resp BP Pulse Ox 01/02/20 07:50 36.8 C 66 18 116/67 93 01/02/20 06:01 94 01/02/20 05:50 94 01/02/20 03:09 36.5 C 71 16 109/63 96 01/02/20 02:07 67 18 110/69 97 01/02/20 01:05 69 16 114/69 97 01/02/20 00:05 74 18 114/65 95 01/01/20 23:35 36.8 C 87 18 121/72 94 01/01/20 23:05 36.9 C 90 18 116/63 92 01/01/20 22:45 82 18 113/60 93 01/01/20 22:35 78 18 107/56 L 93 01/01/20 22:25 78 18 104/58 L 93 01/01/20 22:17 36.6 C 81 18 134/63 93 Resident Activity Tracking Resident Involvement: Resident Care Provided Care Provided: Adult Hospital Medicine (1) Gastroesophageal reflux disease Esophagitis presence: without esophagitis Qualified Code(s): K21.9 - Gastro- esophageal reflux disease without esophagitis (2) HTN (hypertension) Hypertension type: essential hypertension Qualified Code(s): I10 - Essential (primary) hypertension
--- NOTE | 2020-01-02 09:37 | Electrocardiogram Report ---
Test Reason : Blood Pressure : / mmHG Vent. Rate : 080 BPM Atrial Rate : 080 BPM P-R Int : 168 ms QRS Dur : 082 ms QT Int : 364 ms P-R-T Axes : 040 -04 -39 degrees QTc Int : 419 ms Normal sinus rhythm Nonspecific ST and T wave abnormality Abnormal ECG When compared with ECG of 31-DEC-2001 12:43, Nonspecific T wave abnormality now evident in Lateral leads Confirmed by Kenn Monet ([id number]) on 01/02/2020 9:36:53 AM Referred By: Darrin Rodriguez Confirmed By:Kenn Monet
--- NOTE | 2020-01-02 10:27 | Surgery Progress Note ---
Date of Service January 02, 2020 Assessment & Plan (1) Acute gangrenous cholecystitis: POD # 1 s/p laparoscopic cholecystectomy for gangrenous cholecystitis -vitals stable, afebrile - resolution of leukocytosis - pain minimal - mar drain with 60 cc bloody sanguineous output LS - no n/v Plan: regular diet as tolerated IV mefoxin to start now continue IV fluids encouraged oob to chair and ambulate Continue pain management as needed continue mar drain to bulb suction hopeful discharge tomorrow cbc tomorrow am Dr. French has seen and examined pt, agrees with above Subjective feeling good this morning minimal pain passing gas no nausea or vomiting tolerated breakfast Physical Exam Constitutional: WD/WN, vitals as above no acute distress Respiratory: normal respiratory effort; no respiratory distress Gastrointestinal (Abdomen): Inspection/Auscultation: abdomen normal to inspection and + abdominal surgical drain present (bloody, sanguineous); abdomen not distended Percussion/Palpation: abdomen soft; abdomen nontender, no guarding and abdomen not rigid Skin: no rashes, warm and dry Psychiatric: A+Ox3, euthymic affect Results & Data Vital Signs (Past 12 Hours) Vital Signs Temp Pulse Pulse Resp BP Pulse Ox 01/02/20 07:50 36.8 C 66 18 116/67 93 01/02/20 06:01 94 01/02/20 05:50 94 01/02/20 03:09 36.5 C 71 16 109/63 96 01/02/20 02:07 67 18 110/69 97 01/02/20 01:05 69 16 114/69 97 01/02/20 00:05 74 18 114/65 95 01/01/20 23:35 36.8 C 87 18 121/72 94 01/01/20 23:05 36.9 C 90 18 116/63 92 01/01/20 22:45 82 18 113/60 93 01/01/20 22:35 78 18 107/56 L 93 01/01/20 22:25 78 18 104/58 L 93 Laboratory Results 01/02/20 Range/Units 05:25 WBC 8.81 (4.8-10.8) K/uL RBC 3.58 L (4.7-6.1) M/uL Hgb 11.0 L (14.0-18.0) g/dL Hct 33.6 L (42-52) % MCV 93.9 (80-100) fL MCH 30.7 (25-34) pg MCHC 32.7 (32-36) g/dL RDW Std Deviation 50.3 H (36.4-46.3) fL RDW Coeff of Anatoliy 14.6 H (11.5-14.5) % Plt Count 145 (130-400) K/uL MPV 9.5 (7.4-10.4) fL Immature Gran % (Auto) 0.2 % Neut % (Auto) 86.8 % Lymph % (Auto) 6.0 % [place] % (Auto) 6.9 % Eos % (Auto) 0.0 % Baso % (Auto) 0.1 % Immature Gran # (Auto) 0.02 (0.00-0.02) K/uL Neut # (Auto) 7.64 H (1.4-6.5) K/uL Lymph # (Auto) 0.53 L (1.2-3.4) K/uL [place] # (Auto) 0.61 H (0.11-0.59) K/uL Eos # (Auto) 0.00 (0-0.5) K/uL Baso # (Auto) 0.01 (0-0.2) K/uL
[2020-01-02] MEDS: SODIUM CHLORIDE 0.9% 1000ML 1,000 ML IV SCH (11:37)
[2020-01-02] MEDS: cefOXitin 2,000 MG in DEXTROSE 5% 50 ML IV SCH ×3 (11:46→22:41)
--- NOTE | 2020-01-02 15:04 | Billing Data ---
Date of Service January 02, 2020 Coding Level of Care Code 85740 Inpt Consult Level 2
[2020-01-02] MEDS ORDERED: ATENOLOL 50 MG TABLET PO SCH (21:00)
[2020-01-03] MEDS: cefOXitin 2,000 MG in DEXTROSE 5% 50 ML IV SCH ×2 (04:15→10:21)
[2020-01-03 05:45] LABS: Hemoglobin 10.7 g/dL (14.0-18.0); Mean Corpuscular Hemoglobin 30.9 pg (25-34); Mean Corpuscular Hgb Conc 33.4 g/dL (32-36); Mean Corpuscular Volume 92.5 fL (80-100); Platelet Count 178 K/uL (130-400); RDW Coefficient of Variation 14.7 % (11.5-14.5); RDW Standard Deviation 49.8 fL (36.4-46.3); Red Blood Count 3.46 M/uL (4.7-6.1); White Blood Count 7.47 K/uL (4.8-10.8)
[2020-01-03] MEDS: SODIUM CHLORIDE 0.9% 1000ML 1,000 ML IV SCH (08:25)
[2020-01-03] MEDS: PANTOprazole 40 MG TAB PO SCH (08:27)
--- NOTE | 2020-01-03 09:36 | Surgery Progress Note ---
Date of Service January 03, 2020 Assessment & Plan (1) Acute gangrenous cholecystitis: POD # 2 s/p laparoscopic cholecystectomy for gangrenous cholecystitis -vitals stable, afebrile - resolution of leukocytosis - pain minimal - mar drain with 50 cc serosanguineous output - no n/v Plan: Discharge home today discharge instructions reviewed mar drain removed f/u surgical office phone call in [address] French has seen and examined pt, agrees with above Subjective feeling good this morning no post op pain, soreness at drain site tolerating reg diet no n/v ambulating [facility] Physical Exam Constitutional: WD/WN, vitals as above no acute distress Gastrointestinal (Abdomen): Inspection/Auscultation: abdomen normal to inspection and + abdominal surgical drain present (serosanguineous drainage); abdomen not distended Percussion/Palpation: abdomen soft; abdomen nontender, no guarding and abdomen not rigid Skin: no rashes, warm and dry + incision (covered with steris, dry) Psychiatric: A+Ox3, euthymic affect Results & Data Vital Signs (Past 12 Hours) Vital Signs Temp Pulse Resp BP Pulse Ox 01/03/20 07:40 36.9 C 62 18 151/77 H 93 01/02/20 23:03 37.1 C 60 24 128/70 92 Laboratory Results 01/03/20 Range/Units 04:51 WBC 7.47 (4.8-10.8) K/uL RBC 3.46 L (4.7-6.1) M/uL Hgb 10.7 L (14.0-18.0) g/dL Hct 32.0 L (42-52) % MCV 92.5 (80-100) fL MCH 30.9 (25-34) pg MCHC 33.4 (32-36) g/dL RDW Std Deviation 49.8 H (36.4-46.3) fL RDW Coeff of Anatoliy 14.7 H (11.5-14.5) % Plt Count 178 (130-400) K/uL MPV 10.0 (7.4-10.4) fL
--- NOTE | 2020-01-06 08:43 | Discharge Summary ---
Date of Service January 06, 2020 Admission HPI Per Admitting Provider This is a 74-year-old male who was sent to the emergency room after a CT scan demonstrated gangrenous gallbladder. The patient states that he began to have pain 2 days ago. It was on the right side from the level of the umbilicus up to the subcostal region. The pain then became very sharp. It has persisted. He has never had pain like this before. Motion exacerbates the discomfort. He has had no fever or chills. He denies nausea and vomiting. His bowels have been moving without melena or hematochezia. He has no diarrhea or constipation. He has never had jaundice, hepatitis or pancreatitis. Admission Exam Per Admitting Provider Constitutional: well developed; no acute distress Neck: trachea midline Respiratory: normal respiratory effort, lungs clear to auscultation Cardiovascular: Rate/Rhythm: regular rate and regular rhythm Gastrointestinal (Abdomen): Inspection/Auscultation: normal bowel sounds; abdomen not distended Percussion/Palpation: + abdomen tender (Right subcostal region) and abdomen soft; no guarding Skin: no rashes, warm and dry Lymphatic: no cervical lymphadenopathy Principal Diagnosis Acute gangrenous cholecystitis Discharge Exam Constitutional no acute distress Respiratory normal respiratory effort, lungs clear to auscultation Gastrointestinal (Abdomen) Inspection/Auscultation: normal bowel sounds and + abdominal surgical incision (All clean dry and intact); abdomen not distended Percussion/Palpation: + abdomen tender (Incisional only and mild) and abdomen soft Discharge Data Allergies Allergy/AdvReac Type Severity Reaction Status Date / Time pseudoephedrine Allergy Unknown RASH Verified 01/01/20 19:16 triprolidine Allergy Unknown RASH Verified 01/01/20 19:16 Consultations 01/01/20 23:18 Consult Hospitalist Routine Procedures Performed Operation Date: 01/01/20 19:00 Actual Procedures p Laparoscopic Cholecystectomy(Not Applicable) - Brandin French MD Hospital Course (1) Acute gangrenous cholecystitis: This patient was sent to the emergency room after abnormal radiologic imaging. He was taken to the operating room where acute gangrenous cholecystitis was identified. There was no evidence of perforation of the gallbladder and there was no abscess. Laparoscopic cholecystectomy was successfully performed without complication. Over the next 2 days he was feeling much better. He had only incisional pain. He was tolerating a regular diet. The Yaya-Mendez drain was draining serosanguineous fluid without evidence of bile. The drain was removed prior to discharge. Pathology is pending. Total Time Total Time Spent Total Time Spent (In Minutes): 20 Total Time Includes: Examination of the Patient, Discharge Planning and Medication Reconciliation Discharge Plan Discharge Items Patient Disposition: Home - Self-Care Reason For Visit: ACUTE CHOLECYSTITIS Discharge Diagnosis: Acute gangrenous cholecystitis Activity: Per Instructions section Non-emergency contact: Surgeon Call non-emergency contact if: your pain is not controlled, your pain is worsening, your pain is concerning for you, you have a fever, your temperature is above 101, your wound has increased redness, your wound has increased drainage and your wound pain has increased Follow-up/Referrals: Darrin Rodriguez MD [Primary Care Provider] - Brandin French MD [Physician] - (Dr. French's office will call with 2 week follow up appointment. ) Diet: Regular Addtl Attending Provider Instructions: Post-Surgical ~Discharge Instructions Activity Recommendations: - lifting limitation: (10 pounds for 2 weeks), - exercise/sex/sports limit: (nonstrenuous for 2 weeks), - driving or machine use limit: (none for 1 week), - Shower/bathe limit: (may shower beginning tomorrow morning) Diet: - Resume previous diet SPECIAL CARE INSTRUCTIONS: - May shower tomorrow morning. Let water run over area and pat dry. - Leave steri strips on for one week and then remove. - Replace dressing over drain site daily and as needed to keep clean and dry. - Call the surgeon's office with any questions or concerns - - (ex. temperature higher than 101 degrees F, excessive bleeding or pain). MEDICATIONS: - Resume previous medications unless instructed otherwise by your surgeon. - Ibuprofen 600 mg every 6 hours as needed with food - Tylenol 650 mg every 6 hours as needed FOLLOW UP VISIT: - Please call the office to schedule a two week follow-up phone call appointment. Office number . We are limiting office visits due to Coronavirus pandemic. We will review your pathology results over the phone with you. Pending Studies at Discharge: Yes (gallbladder pathology) Stand-Alone Forms: My [facility] [employer], Smoking Cessation Medications and DC Order Prescriptions: Continued omega-3 acid ethyl esters 1 gram capsule 1 cap PO BID RF: 0 multivitamin [Daily Multi-Vitamin] tablet 1 tab PO DAILY RF: 0 omeprazole 40 mg capsule,delayed release(DR/EC) 40 mg PO DAILY Qty: 90 RF: 0 hydrocortisone 2.5 % cream with perineal applicator 1 appln HI DAILY PRN (Reason: Itching) Qty: 1 RF: 0 atenolol 50 mg tablet 50 mg PO QPM RF: 0 Discharge Orders: Discharge Order (Routine); Ordered 01/03/20 Ordered By: Ana Pino/Other Patient Handouts: Cholecystectomy Admission Data Admit Date/Time: 01/01/20 22:41 Attending Provider: Brandin French Admit Provider: Brandin French Primary Care Provider: Darrin Rodriguez Other Providers: Omar Strong Other Interventions: Discharge Summary Assessment (RN) Last Done: 01/03/20 09:41 DC Date/Time DO NOT enter until pt leaves facility: 01/03/20 11:04
== END 2020-01-03 11:04 | disposition home or self-care (01) ==
LOC: 3E 18:12 → ED 18:12 → 3E 19:16